=== PATIENT | female | born 1955 | race Two or more races ===

== ENCOUNTER 2025-05-02 10:38 | Emergency (ER) | payer MEDICARE, MEDICAID, SELFPAY ==
[2025-05-02] VITALS (10 sets, daily range): BP systolic 151–169; BP diastolic 78–85; PULSE 61–71; RESP 14–31; TEMP 36.6–36.9; O2SAT 98–100; BMI 38.3
--- NOTE | 2025-05-02 10:44 | EKG_ITS ---
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
--- NOTE | 2025-05-02 11:14 | XR_ITS ---
Examination: AP chest single view TECHNIQUE: Portable AP sitting chest single view Date and time: May 02, 2025 12 0 3:00 PM INDICATIONS: Generalized weakness today. FINDINGS: Lordotic chest Mild prominence of ventricle No pneumonia or pulmonary edema IMPRESSION: No pneumonia or pulmonary edema
--- NOTE | 2025-05-02 11:16 | EDNOTE_ITS ---
ED Abdominal Pain RME/HPI General Chief Complaint: Extremity Injury, Lower Stated complaint: DIZZINESS, WEAKNESS VOMITING Time seen by provider: 05/02/25 11:09 Arrival date/time: 05/02/25 10:38 RME / HPI RME / HPI narrative: 69-year-old female patient came in for evaluation regarding generalized body weakness. Patient has been having worsening generalized body weakness, has been ongoing for the last 15 days, getting worse for the last 3 days, associated with dizziness, headache, lower abdominal pain, vomiting, nausea, and weakness. Patient denies any fever. Denies any chest pain denies any cough denies any other complaints. No diarrhea or constipation noted. No medication was taken prior to arrival. Related Data Previous Rx's ?Medication ?Instructions ?Recorded ibuprofen 600 mg tablet 600 mg PO Q8H PRN fever or p ain 04/30/21 #30 tabs amoxicillin 875 mg-potassium 1 tab PO BID #20 tabs clavulanate 125 mg tablet famotidine 40 mg tablet (Pepcid) 40 mg PO QDAY #10 tab s 05/02/25 ibuprofen 800 mg tablet 800 mg PO Q8H PRN pain #30 t abs 05/02/25 ondansetron HCl 4 mg tablet 4 mg PO TID PRN nausea and 05/02/25 vomiting 5 days #20 tabs Allergies Allergy/AdvReac Type Severity Reaction Status Date / Time No Known Allergies Allergy Verified 05/02/25 10:42 Review of Systems Review of Systems Narrative Review of Systems: Review of system reviewed and within normal limits except mentioned in HPI ED Exam Narrative Physical exam: VITAL SIGNS: Reviewed. GENERAL APPEARANCE: Alert and interactive, follows commands, no acute distress, HEAD AND FACE: Non-traumatic. ENT: PERRL, pink conjunctivitis, eyelid no trauma, Mucous membrane dry NECK: Supple, nontender, no nuchal rigidity. CHEST: No tenderness, no crepitus, no paradoxical movement, no retractions. LUNGS: Clear, well ventilated, symmetric, no rales, no wheezing, no ronchi, no stridor, good breath sounds bilaterally. HEART: Regular rate, regular rhythm, no murmur, no gallops. ABDOMEN: Soft, positive bowel sounds, nondistended, no guarding, lower abdominal tenderness no rebound, no masses, RECTAL: Deferred. GENITAL: Deferred. NEUROLOGICAL: Gross motor function intact sensory function intact, Appropriate for age. MUSCULOSKELETAL: low back nontender, full range of motion. EXTREMITIES: Nontender, full range of motion. SKIN: Color pink, dry, no rash, no lacerations, no abrasions, no contusions. LYMPHATICS: Deferred. Course Quality Measures none Orders Category Date Time Status CT Screening NOW Care 05/02/25 11:19 Active EKG (ED ONLY) *Do not use* NOW Care 05/02/25 10:[address] abdomen pelvis w con Stat Exams 05/02/25 11:[address] head/brain wo con Stat Exams 05/02/25 11:19 Completed EKG (ED Only) Stat Exams 05/02/25 10:44 Draft XR chest 1V Stat Exams 05/02/25 11:14 Completed B-Type Natriuretic Peptide Stat Lab 05/02/25 11:36 Completed CBC Stat Lab 05/02/25 11:36 Completed Comprehensive Metabolic Panel Stat Lab 05/02/25 11:36 Completed Lactate (Lactic Acid) Stat Lab 05/02/25 11:36 Completed Partial Thromboplastin Time Stat Lab 05/02/25 11:36 Completed Prothrombin Time with INR Stat Lab 05/02/25 11:36 Completed Troponin I Stat Lab 05/02/25 11:36 Completed Urinalysis, C/S if Indicated Stat Lab 05/02/25 11:35 Completed Amoxicillin/Pot Clav 875 [Augmentin 875] Med 05/02/25 13:34 Discontinued 1 tab PO X1 ONE Meclizine HCl [Antivert] Med 05/02/25 11:14 Discontinued 50 mg PO X1 ONE Ondansetron Inj [Zofran Inj] Med 05/02/25 11:14 Discontinued 4 mg IVP X1 ONE Ringers Lactated 1000 ml [Lactated Ringers] 1,000 ml Med 05/02/25 11:15 Discontinued IV 999 mls/hr Vital Signs Vital signs: Vital Signs Temperature 98.4 F 05/02/25 10:46 Pulse Rate 71 05/02/25 10:46 Respiratory Rate 18 05/02/25 10:46 Blood Pressure 158/84 H 05/02/25 10:46 Pulse Oximetry (%) 100 05/02/25 10:46 Oxygen Delivery Method Room Air 05/02/25 10:46 Abdominal Pain MDM MDM Narrative MDM Narrative:: 69-year-old female patient came in for evaluation regarding generalized body weakness. Patient has been having worsening generalized body weakness, has been ongoing for the last 15 days, getting worse for the last 3 days, associated with dizziness, headache, lower abdominal pain, vomiting, nausea, and weakness. Patient denies any fever. Denies any chest pain denies any cough denies any other complaints. No diarrhea or constipation noted. No medication was taken prior to arrival. EKG as interpreted by me showed sinus rhythm, ventricular 27 bpm, no ST segment elevation or depression noted. Patient's laboratory workup including urinalysis all came back unremarkable troponin is normal. CT scan of the abdomen pelvis showed diverticulitis otherwise unremarkable. CT scan of the head came back unremarkable chest x-ray came back unremarkable. Patient received IV fluids, Augmentin, and meclizine and Zofran with significant improvement of symptoms. Patient was noted to be ambulatory with minimal help. Plan of care discussed with the patient and family who agrees with the plan. Patient data External records reviewed:: None Clinical information provided by:: patient and family Social determinants that could affect healthcare access:: none Patient has the following chronic illnesses:: None How is presenting disease/condition affected by chronic disease/condition?: no chronic disease Evaluation data The following diagnostics were reviewed and interpreted by me:: lab results, radiology exam(s) and EKG tracing(s) Lab and/or radiology exams considered but not ordered:: None Interpretation Summary: See results [facility] Medications / Prescriptions Medications or Prescriptions considered but not ordered:: None Medication administrations:: Medication Administration History Discontinued Medications Amoxicillin/Clavulanate Potassium (Amoxicillin/Pot Clav 875 Tablet) 1 tab PO X1 ONE Stop: 05/02/25 13:35 Lactated Ringer's (Lactated Ringers) 1,000 mls @ 999 mls/hr IV .Q1H1M ONE Stop: 05/02/25 12:15 Last Infusion: 05/02/25 13:34 Dose: Infused Documented By: Admin: 05/02/25 11:57 Dose: 999 mls/hr Documented By: CG Meclizine HCl (Meclizine Hcl 25 Mg Tablet) 50 mg PO X1 ONE Stop: 05/02/25 11:15 Last Admin: 05/02/25 11:56 Dose: 50 mg Documented By: CG Ondansetron HCl (Ondansetron Inj 2 Mg/Ml Inj 2 Ml) 4 mg IVP X1 ONE; Protocol Stop: 05/02/25 11:15 Last Admin: 05/02/25 11:56 Dose: 4 mg Documented By: TIMMY Hinson meclizideon IV fluids and Augmentin Consultations Consultation(s) initiated? (list below): No Diagnosis Differential diagnosis abdominal pain: abdominal pain, constipation and diverticulitis Most likely diagnosis given after review of the tests above:: Diverticulitis, dizziness Admission Indicated Admission indicated?: not indicated Admission Request Was there a request for admission?: No Disposition Plan Disposition Plan: Discharge Discharge Attestation Discharge Attestation: The patient and all family members were given an opportunity to ask questions and understood the discharge instructions. Discharge instructions specifically effects, indications for sooner follow up or return to the emergency department, and the expected course of current diagnosis. Patient condition: Stable Discharge Plan Plan Patient Disposition: HOME (Self Care) Discharge Disposition comment: Stable Prescriptions/Referrals Prescriptions/Med Rec: New amoxicillin-pot clavulanate 875-125 mg tablet 1 tab PO BID Qty: 20 0RF ondansetron HCl 4 mg tablet 4 mg PO TID PRN (Reason: nausea and vomiting) 5 Days Qty: 20 0RF famotidine [Pepcid] 40 mg tablet 40 mg PO QDAY Qty: 10 0RF ibuprofen 800 mg tablet 800 mg PO Q8H PRN (Reason: pain) Qty: 30 0RF No Action ibuprofen 600 mg tablet 600 mg PO Q8H PRN (Reason: fever or pain) Qty: 30 0RF Referrals: Kings Stephens MD [Primary Care Provider] - In 1 week Problem List Clinical Impression: Diverticulitis, Dizziness Patient/Caregiver Discharge Instructions Discharge Activity: activity as tolerated Education Materials: ED Diverticulitis Additional Instructions: Thank you for the opportunity for serving you today. You are stable for discharged . You are advised to: Follow-up with your PCP in 1 to 2 days Return to ED for worsening of symptoms Increase oral fluids Take medication as prescribed Liquid diet for total 3 days advance as tolerated Print Language: [place] Citizen Stand Alone Forms: Jodie Award Info., Patient Portal Info Letter
--- NOTE | 2025-05-02 11:19 | XR_ITS ---
Examination: CT brain head without contrast. 2-D sagittal coronal reconstructions Date and time of exam:May 02, 2025 1234 hours Comparison April 30, 2021 INDICATIONS: Headaches dizziness beginning this morning CTDI: vol (mGy):47.7 DLP: (mGycm):1001 Technique: Multiple CT axial sections of the brain have been obtained, 5 mm slice thickness. Contrast has not been administered. 2-D sagittal, coronal reconstructions have been obtained Low dose protocols were performed. One or more of the following dose reduction techniques were used; automated exposure control, adjustment of the mA and/or KV according to patient size, use of iterative reconstruction technique. Findings: No significant ventricular enlargement. Intra-axial or extra-axial hemorrhage density is not seen. No mass effect or midline shift Basal cisterns are not remarkable. Fourth ventricle is midline. Cranial vault intact. Impression: Negative for acute hemorrhage, mass effect or midline shift Advise clinical correlation and follow-up accordingly
--- NOTE | 2025-05-02 11:19 | XR_ITS ---
Examination: CT abdomen with intravenous contrast CT pelvis with intravenous contrast 2-D coronal reconstructions 2-D sagittal reconstructions Date and time of exam:May 02, 2025 1239 hours INDICATIONS: Lower abdominal pain with nausea vomiting today. CTDI: vol (mGy) 10.3 DLP: (mGycm) 571 Technique: Multiple axial sections of the abdomen and pelvis have been obtained. 64 slice high-resolution scanner used. 3 mm axial sections have been obtained, post intravenous injection 60 cc [id number] 2-D sagittal, coronal reconstructions obtained. Low dose protocols were performed. One or more of the following dose reduction techniques were used; automated exposure control, adjustment of the mA and/or KV according to patient size, use of iterative reconstruction technique. Findings: No focal liver lesions Absent gallbladder No extra hepatic biliary tract dilatation Spleen is not enlarged No pancreatic or adrenal mass No renal or ureteral calculi, no hydronephrosis Aorta normal size No pericecal inflammatory change No bowel obstruction Colonic diverticulosis Minimal inflammatory change about the sigmoid colon, history since axial image 184 No pelvic mass Bladder intact Severe osteopenia with advanced disc narrowing L5-S1 IMPRESSION: Suspicious for early acute sigmoid diverticulitis, no peridiverticular abscess
[2025-05-02 11:41] LABS: Collection Type, Urine Clean Catch; Squamous Epithelial Cell,Urine 0 /hpf (0-5)
[2025-05-02 11:47] LABS: Basophils % (Auto) 0 % (0-2.5); Eosinophils % (Auto) 0 % (0-10); Hematocrit 39.7 % (36.0-46.0); Hemoglobin 13.7 g/dL (12.0-16.0); Immature Granulocytes % (Auto) 0 % (0-0); Immature Granulocytes Auto 0.01 Thou/mm3 (0.00-0.00); Lymphocytes # (Auto) 1.4 Thou/mm3 (1.0-4.8); Lymphocytes % (Auto) 20 % (10-50); Mean Corpuscular HGB Conc 34.5 g/dl (31.0-37.0); Mean Corpuscular Hemoglobin 30.3 pg (25.0-35.0); Mean Corpuscular Volume 88 fL (80-100); Monocytes # (Auto) 0.4 Thou/mm3 (0.0-0.8); Monocytes % (Auto) 5 % (0-12); Neutrophils # (Auto) 5.2 Thou/mm3 (1.8-7.7); Neutrophils % (Auto) 75 % (37-80); Nucleated Red Blood Cell % 0 /100 WBC (0); Platelet Count 303 Thou/mm3 (140-440); RDW Standard Deviation 40.4 fL (36.4-46.3); Red Blood Count 4.52 Miln/mm3 (4.00-5.20)
[2025-05-02 11:49] LABS: Bilirubin,Urine Negative (Negative); Blood,Urine Negative (Negative); Clarity,Urine Clear (Clear/Hazy); Color,Urine Colorless (Lt Yel-Yel); Culture Indicated,Urine Not Indicated; Glucose, Urine Negative (Negative); Ketones,Urine Negative (Negative); Leukocyte Esterase,Urine Negative (Negative); Nitrite,Urine Negative (Negative); Protein,Urine Negative (Neg - Trace); RBC,Urine 1 /hpf (0-3); Specific Gravity,Urine 1.005 (1.001-1.035); Urobilinogen,Urine Negative mg/dL (0.0-1.0); WBC,Urine < 1 /hpf (0-5)
[2025-05-02] MEDS: ONDANSETRON INJ 2 MG/ML INJ 2 ML 4 MG IVP (11:56)
[2025-05-02] MEDS: MECLIZINE HCL 25 MG TABLET 50 MG PO (11:56)
[2025-05-02] MEDS: RINGERS LACTATED 1000 ML 1,000 ML 999 ML IV (11:57)
[2025-05-02 12:04] LABS: Prothrombin Time 11.4 Seconds (9.0-12.2)
[2025-05-02 12:08] LABS: B-Type Natriuretic Peptide 107 pg/mL (0-100)
[2025-05-02 12:11] LABS: Alanine Aminotransferase 16 U/L (10-49); Albumin, Serum 4.5 gm/dL (3.4-4.8); Albumin/Globulin Ratio 1.5 (1.2-2.2); Alkaline Phosphatase 150 U/L (46-116); Anion Gap 8 (7-16); Aspartate Amino Transferase 24 U/L (0-34); BUN/Creatinine Ratio 12 Ratio (12-20); Bilirubin,Total 0.5 mg/dL (0.3-1.2); Blood Urea Nitrogen 12 mg/dL (9-23); Calcium 9.9 mg/dL (8.3-10.6); Calcium (Corrected) 9.9 mg/dL (8.5-10.1); Carbon Dioxide 26.2 mMol/L (20.0-31.0); Chloride 106 mMol/L (98-107); Estimated Creatinine Clearance 50.6 mL/min (>60); Globulin 3.1 gm/dL (2.3-3.5); Glucose 109 mg/dL (74-106); Osmolality,Calculated 280 (275-295); Potassium 4.1 mMol/L (3.4-5.1); Sodium 140 mMol/L (136-145); Total Protein 7.6 gm/dL (5.7-8.2); Troponin I < 0.020 ng/mL (0.0-0.045); eGFR > 60 See Note
[2025-05-02] MEDS: AMOXICILLIN/POT CLAV 875 TABLET 1 TAB PO (14:53)
== END 2025-05-02 15:16 | disposition home or self-care (01) ==
PROVIDERS: Nurse Practitioner Family; Emergency Provider Emergency Medicine; PCP Family Medicine
DX: K57.32 Diverticulitis of large intestine without perforation or abscess without bleeding (principal); R42 Dizziness and giddiness
CPT/HCPCS: 36415; 70450; 71045; 74177; 80053; 81001; 83605; 83880; 84484; 85025; 85610; 85730; 93005; 96361; 96374; 99284; A4649; J2405; J7120; Q9967; A9270

== ENCOUNTER → 2025-07-09 | Outpatient (BNVA) | payer MEDICARE, MEDICAID, SELFPAY | END | disposition home or self-care (01) | PROVIDERS: PCP Nurse Practitioner Family; Referring Provider Nurse Practitioner Family; Visit Provider Nurse Practitioner Family | DX: Z00.00 Encounter for general adult medical examination without abnormal findings (principal); Z12.11 Encounter for screening for malignant neoplasm of colon; G43.909 Migraine, unspecified, not intractable, without status migrainosus; F41.9 Anxiety disorder, unspecified; F32.9 Major depressive disorder, single episode, unspecified; E78.5 Hyperlipidemia, unspecified; Z23 Encounter for immunization; A04.8 Other specified bacterial intestinal infections; Z71.2 Person consulting for explanation of examination or test findings | CPT/HCPCS: 90471; 90677; 99214; G0009 ==

== ENCOUNTER → 2025-07-19 | Outpatient (BNVA) | payer MEDICARE, MEDICAID, SELFPAY | END | disposition home or self-care (01) | PROVIDERS: PCP Nurse Practitioner Primary Care; Referring Provider Nurse Practitioner Primary Care; Visit Provider Nurse Practitioner Primary Care | DX: R10.9 Unspecified abdominal pain (principal) ==

== ENCOUNTER → 2025-07-25 | Outpatient (BNVA) | payer MEDICARE, MEDICAID, SELFPAY | END | disposition home or self-care (01) | PROVIDERS: PCP Nurse Practitioner Family; Referring Provider Nurse Practitioner Family; Visit Provider Nurse Practitioner Family | DX: Z00.01 Encounter for general adult medical examination with abnormal findings (principal); Z71.2 Person consulting for explanation of examination or test findings; R11.0 Nausea; E78.5 Hyperlipidemia, unspecified; F32.9 Major depressive disorder, single episode, unspecified; F41.9 Anxiety disorder, unspecified; G43.909 Migraine, unspecified, not intractable, without status migrainosus; Z13.1 Encounter for screening for diabetes mellitus; M54.2 Cervicalgia; Z11.3 Encounter for screening for infections with a predominantly sexual mode of transmission; M54.50 Low back pain, unspecified | CPT/HCPCS: 93005; 99173; 99215 ==

== ENCOUNTER → 2025-08-08 | Outpatient (BNVA) | payer MEDICARE, MEDICAID, SELFPAY | END | disposition home or self-care (01) | PROVIDERS: PCP Nurse Practitioner Family; Referring Provider Nurse Practitioner Family; Visit Provider Nurse Practitioner Family | DX: Z71.2 Person consulting for explanation of examination or test findings (principal); N39.0 Urinary tract infection, site not specified; E78.5 Hyperlipidemia, unspecified | CPT/HCPCS: 99212; G0463 ==

== ENCOUNTER → 2025-08-22 | Outpatient (BNVA) | payer MEDICARE, MEDICAID, SELFPAY | END | disposition home or self-care (01) | PROVIDERS: PCP Nurse Practitioner Family; Referring Provider Nurse Practitioner Family; Visit Provider Nurse Practitioner Family | DX: Z71.2 Person consulting for explanation of examination or test findings (principal); Z23 Encounter for immunization; N39.0 Urinary tract infection, site not specified | CPT/HCPCS: 90471; 90686; 96372; 99213; J1885 ==

== ENCOUNTER → 2025-08-29 | Outpatient (BNVA) | payer MEDICARE, MEDICAID, SELFPAY | END | disposition home or self-care (01) | PROVIDERS: PCP Nurse Practitioner Family; Referring Provider Nurse Practitioner Family; Visit Provider Nurse Practitioner Family | DX: M54.6 Pain in thoracic spine (principal); R10.84 Generalized abdominal pain; F32.1 Major depressive disorder, single episode, moderate; F41.9 Anxiety disorder, unspecified | CPT/HCPCS: 96372; 99214; J1885 ==

== ENCOUNTER → 2025-09-06 | Outpatient (BNVA) | payer MEDICARE, MEDICAID, SELFPAY | END | disposition home or self-care (01) | PROVIDERS: PCP Nurse Practitioner Family; Referring Provider Nurse Practitioner Family; Visit Provider Nurse Practitioner Family | DX: M54.6 Pain in thoracic spine (principal); R10.84 Generalized abdominal pain | CPT/HCPCS: 96372; 99213; J1885 ==

== ENCOUNTER → 2025-09-14 | Outpatient (CLI) | payer MEDICARE, MEDICAID, SELFPAY ==
--- NOTE | 2025-09-14 14:56 | XR_ITS ---
EXAMINATION:: Thoracic spine 3 views TECHNIQUE: AP lateral, lateral upper dorsal spine 3 views Date and time: September 14, 2025, 1508 hours INDICATION: Upper back pain beginning 3 months ago. FINDINGS: Prominent osteopenia Sharp angle upper thoracic levoscoliosis 23 degrees No acute thoracic fracture Mild to moderate diffuse thoracic degenerative disc disease IMPRESSION: Mild to moderate diffuse thoracic degenerative disc disease Prominent short angle upper thoracic levoscoliosis
== END | disposition home or self-care (01) ==
LOC: CDIM 14:47
PROVIDERS: Referring Provider Nurse Practitioner Family; Visit Provider Nurse Practitioner Family
DX: M51.34 Other intervertebral disc degeneration, thoracic region (principal); M41.9 Scoliosis, unspecified
CPT/HCPCS: 72070

== ENCOUNTER → 2025-09-18 | Outpatient (BNVA) | payer MEDICARE, MEDICAID, SELFPAY | END | disposition home or self-care (01) | PROVIDERS: PCP Nurse Practitioner Family; Referring Provider Nurse Practitioner Family; Visit Provider Nurse Practitioner Family | DX: Z71.2 Person consulting for explanation of examination or test findings (principal); M54.6 Pain in thoracic spine; M41.84 Other forms of scoliosis, thoracic region; R10.84 Generalized abdominal pain; Z76.0 Encounter for issue of repeat prescription | CPT/HCPCS: 99213 ==